=== PATIENT | female | born 1985 | race Caucasian/White ===

== ENCOUNTER 2016-08-18 09:36 | Emergency (ER) | payer BC ==
[2016-08-18 09:49] VITALS: BP 130/82
--- NOTE | 2016-08-18 10:21 | EDM.PDOC ---
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 Left Lower Tooth/Teeth Pain Score (Numeric/FACES): 8 - Related Data Allergies Allergy/AdvReac Type Severity Reaction Status Date / Time No Known Allergies Allergy Verified 08/18/16 09:43 Home Meds: Home Meds Penicillin V Potassium 500 mg PO TID #21 tab 08/18/16 [Rx] traMADol HCl [Tramadol HCl] 50 mg PO Q6H PRN #12 tablet 08/18/16 [Rx] Past Medical History 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 Neurological Surgical History: Reports: Spinal Fusion Social & Family History - Tobacco Use Smoking Status *Q: Current Every Day Smoker Years of Tobacco use: 16 Packs/Tins Daily: 0.5 Second Hand Smoke Exposure: Yes - Recreational Drug Use Recreational Drug Use: No ED ROS GENERAL - Review of Systems Review Of Systems: See Below Constitutional: Reports: No Symptoms HEENT: Reports: Dental Pain Respiratory: Reports: No Symptoms Cardiovascular: Reports: No Symptoms Endocrine: Reports: No Symptoms GI/Abdominal: Reports: No Symptoms : Reports: No Symptoms Musculoskeletal: Reports: No Symptoms Skin: Reports: No Symptoms Neurological: Reports: No Symptoms Psychiatric: Reports: No Symptoms Hematologic/Lymphatic: Reports: No Symptoms Immunologic: Reports: No Symptoms ED EXAM, GENERAL - Physical Exam Exam: See Below Exam Limited By: No Limitations General Appearance: Alert, WD/WN, No Apparent Distress Nose: Normal Inspection, Normal Mucosa, No Blood Throat/Mouth: Other (tooth #19 with filled caries, gingiva wnl, yet 1-2+ tender to palp, multiple submandibular LNs beneath that tooth, no cheek swell, tooth # 28 with a deep visible cavity) Course - Vital Signs Last Recorded V/S: Last Vital Signs Temp 36.6 C 08/18/16 09:44 Pulse 79 08/18/16 09:44 Resp 16 08/18/16 09:44 BP 130/82 08/18/16 09:44 Pulse Ox 99 08/18/16 09:44 - Re-Assessments/Exams Free Text/Narrative Re-Assessment/Exam: 08/18/16 10:18 iSTOP Departure - Departure Time of Disposition: 10:19 Disposition: Home, Self-Care 01 Condition: good Clinical Impression: Dental abscess - Discharge Information Prescriptions: Penicillin V Potassium 500 mg PO TID #21 tab traMADol HCl [Tramadol HCl] 50 mg PO Q6H PRN #12 tablet PRN Reason: Pain Instructions: Dental Abscess Forms: ED Department Discharge Additional Instructions: For infection, take penicillin VK 500 mg 1 tab 3 times a day for 7 days. For pain and inflammation, take acetaminophen 325 mg 2 tabs and ibuprofen 200 mg 3 tabs 4 times a day. For pain, as needed, take tramadol 50 mg 1 tab every 6 hours as needed. No alcohol. Use ice pack to jaw for 10 minutes every 2 hours as needed. Call your dentist at tomorrow to schedule an earlier appointment. Call your Physician or Return to Emergency Department if: * Your condition worsens in any way. * You develop fever greater than 100.4. * You have vomitting that does not stop with medications. * You have pain that is not controlled with medications.
== END 2016-08-18 10:28 | disposition home or self-care (01) ==
LOC: FB.ED 09:36
DX: K04.7 Periapical abscess without sinus (principal); F17.210 Nicotine dependence, cigarettes, uncomplicated
CPT/HCPCS: 99282